=== PATIENT | male | born 1990 | race Hispanic/Latino ===

== ENCOUNTER 2021-06-07 19:21 | Emergency (ER) | payer MEDICAID ==
[~2021-06-07] VITALS: Ht 180.3 cm; Wt 141.0 kg
[~2021-06-07 19:21] MED LIST: AMOXICILLIN500 MG PO; BACTRIM DS1 TAB PO; NO HOME MEDS; ZOFRAN ODT4 MG PO
[2021-06-07 22:18] VITALS: BP 125/79
[2021-06-07] MEDS ORDERED: MOTRIN400 MG/TAB PO (22:18)
== END 2021-06-07 22:18 | disposition home or self-care (01) ==
LOC: ED 19:21
DX: S93.601A Unspecified sprain of right foot, initial encounter (principal); X50.0XXA Overexertion from strenuous movement or load, initial encounter; Y93.67 Activity, basketball; Y92.830 Public park as the place of occurrence of the external cause

== ENCOUNTER 2024-06-30 19:14 | Emergency (ER) | payer SELFPAY ==
[~2024-06-30] VITALS: Ht 180.3 cm; Wt 80.0 kg
[~2024-06-30 19:14] MED LIST changes: +MOTRIN400 MG/TAB PO
[2024-06-30 19:41] VITALS: BP 132/81
[2024-06-30 19:45] VITALS: BP 125/80
[2024-06-30] MEDS ORDERED: DiphenhydrAMINE HCL 25 MG CPLT PO ONE (19:45)
[2024-06-30] MEDS ORDERED: predniSONE 20 MG/TAB PO ONE (19:45)
[2024-06-30] MEDS ORDERED: STERAPRED DS10 MG PO (19:47)
[2024-06-30 20:00] VITALS: BP 123/80
[2024-06-30 20:05] VITALS: BP 125/80
== END 2024-06-30 20:05 | disposition home or self-care (01) | DRG 607 ==
LOC: ED 19:14
DX: L23.7 Allergic contact dermatitis due to plants, except food (principal)